=== PATIENT | female | born 1985 | race Caucasian/White ===

== ENCOUNTER 2020-02-06 21:08 | Emergency (ER) | payer OTHER ==
--- NOTE | 2020-02-06 21:12 | PDOC ---
Rapid Medical Evaluation Time Seen by Provider: 02/06/20 21:11 Medical Evaluation: 02/06/20 21:11 I have performed a brief in-person examination on this patient. CC: right thumb pain s/p closing car door on the thumb 02/03 PE: +f/e against resistance. No bony deformity. Erythema to cuticles. Black nail korean impedes evaluation of nailbed Orders: xray Patient will proceed to ED for further evaluation. Discharge Disposition - Diagnosis Pain of right thumb - Referrals - Patient Instructions - Post Discharge Activity
--- OUTSIDE RECORDS SUMMARY | 2020-02-06 21:23 | XMS ---
:1985 Author Organization [facility] Support Name Relationship Address Phone [facility] Unavailable [address] [place] [address] NIKKI BAZAN MOTHER [address] [place] [address] Re-disclosure Warning The records that you are about to access may contain information from federally- assisted alcohol or drug abuse programs. If such information is present, then the following federally mandated warning applies: This information has been disclosed to you from records protected by federal confidentiality rules (42 CFR part 2). The federal rules prohibit you from making any further disclosure of this information unless further disclosure is expressly permitted by the written consent of the person to whom it pertains or as otherwise permitted by 42 CFR part 2. A general authorization for the release of medical or other information is NOT sufficient for this purpose. The Federal rules restrict any use of the information to criminally investigate or prosecute any alcohol or drug abuse patient.The records that you are about to access may contain highly sensitive health information, the redisclosure of which is protected by Article 27-F of the [facility] Public Health law. If you continue you may haveaccess to information: Regarding HIV / AIDS; Provided by facilities licensed or operated by the [facility] Office of Mental Health; or Provided by the [facility] Office for People With Developmental Disabilities. If such information is present, then the following [facility] mandated warning applies: This information has been disclosed to you from confidential records which are protected by state law. State law prohibits you from making any further disclosure of this information without the specific written consent of the person to whom it pertains, or as otherwise permitted by law. Any unauthorized further disclosure in violation of state law may result in a fine or nursing home sentence or both. A general authorization for the release of medical or other information is NOT sufficient authorization for further disclosure. Insurance Providers Payer name Policy type Policy ID Covered Covered green party's Policy P rona / Coverage green party ID relationship to Seay Inf ormation type seay YANET [id number] [address] [place] [address] CAP
[2020-02-06 21:32] VITALS: BP 126/89; PULSE 91; TEMP 97.2; BMI 36.1
--- NOTE | 2020-02-06 22:22 | PDOC ---
History of Present Illness - General Chief Complaint: Injury Stated Complaint: R THUMB INJURY Time Seen by Provider: 02/06/20 21:11 - History of Present Illness Initial Comments: 02/06/20 22:16 34-year-old female no comorbidities presents for evaluation of right thumb pain. 2 nights ago patient states she slammed her hand in the car door accidentally. Past History - Medical History COPD: No - Reproductive History Is Patient Now?: No - Psycho-Social/Smoking History Smoking History: Never smoked - Substance Abuse Hx (Audit-C & DAST Scrn) How often the patient has a drink containing alcohol: Never Score: In Men: 4 or > Positive; In Women: 3 or > Positive: 0 Screen Result (Pos requires Nsg. Audit-10AR): Negative Review of Systems - Review of Systems Musculoskeletal: Yes: Joint Pain *Physical Exam - Vital Signs Last Vital Signs Temp Pulse Resp BP Pulse Ox 97.2 F L 91 H 20 126/89 02/06/20 21:29 02/06/20 21:29 02/06/20 21:29 02/06/20 21:29 - Physical Exam 02/06/20 22:17 Some swelling and mild erythema around the Nail fold. No warmth or induration of the skin. Black nail samoan on unable to evaluate nailbed. Patient minimally flexes the IPJ of the thumb no gross sensorimotor deficits n eurovascular intact Medical Decision Making - Medical Decision Making 02/06/20 22:17 No fracture on radiograph unable to evaluate nailbed patient's nail is intact and uninjured. Mild erythema around the proximal nail fold may indicate the patient is going to lose the nail in the future. Follow-up with orthopedic hand surgery no emergent intervention necessary discussed use of Tylenol and Motrin I have reviewed the pathophysiology with the patient. They are in agreement with the treatment plan all questions were answered to their satisfaction. Understanding for follow-up without fail was also conveyed to the patient. Again they are in agreement. Discharge - Discharge Information Problems reviewed: Yes Clinical Impression/Diagnosis: Pain of right thumb, Crushing injury of right thumb Condition: Stable Disposition: HOME - Admission No - Follow up/Referral Referrals: Juanito Tineo MD [Staff Physician] - - Patient Discharge Instructions Additional Instructions: Tylenol and Motrin for pain. Without fail follow-up with orthopedic hand surgery in 1 to 2 days for further evaluation and treatment options. - Post Discharge Activity
== END 2020-02-06 22:30 | disposition home or self-care (01) ==
LOC: JER 21:08 → JERFT 21:08
DX: S67.01XA Crushing injury of right thumb, initial encounter (principal); M79.644 Pain in right finger(s)
CPT/HCPCS: 73140-TC-RT-FY; 99283-25